=== PATIENT | female | born 2000 | race African-American/Black ===

== ENCOUNTER 2021-01-28 11:21 | Emergency (ER) | payer OTHER ==
[~2021-01-28] VITALS: Ht 152.4 cm; Wt 60.4 kg
[2021-01-28 12:31] LABS: CALCIUM 8.9 mg/dL (8.5-10.1); CREATININE 0.6 mg/dL (0.6-1.0); GFR 126.2; POTASSIUM 3.4 mmol/L (3.5-5.1)
[2021-01-28 12:37] LABS: ALBUMIN 3.4 g/dL (3.4-5.0); ALBUMIN/GLOBULIN RATIO 0.8 (1.0-1.7); TOTAL BILIRUBIN 0.2 mg/dL (0.2-1.0); TOTAL PROTEIN 7.7 g/dL (6.4-8.2)
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
[2021-01-28 13:40] LABS: BILIRUBIN,URINE NEGATIVE (NEG); CLARITY,URINE CLEAR; COLOR,URINE YELLOW; NITRITE,URINE NEGATIVE (NEG); PH,URINE 7.5 (<5.0-8.0); PROTEIN,URINE NEGATIVE (NEG-TRACE); UROBILINOGEN,URINE 0.2 mg/dL (0.2 mg/dL)
[2021-01-28 13:50] LABS: BACTERIA,URINE 0 /HPF (0-FEW)
[2021-01-28 14:43] VITALS: BP 112/70
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
== END 2021-01-28 15:34 | disposition home or self-care (01) ==
LOC: ER 11:21
DX: O9A.211 Injury, poisoning and certain other consequences of external causes complicating pregnancy, first trimester (principal); S00.12XA Contusion of left eyelid and periocular area, initial encounter; S70.212A Abrasion, left hip, initial encounter; R10.84 Generalized abdominal pain; M54.2 Cervicalgia; Z3A.08 8 weeks gestation of pregnancy; V43.62XA Car passenger injured in collision with other type car in traffic accident, initial encounter; Y93.89 Activity, other specified; Y92.89 Other specified places as the place of occurrence of the external cause; Y99.8 Other external cause status
CPT/HCPCS: 36415; 70450; 70486; 72125; 76801; 80053; 81001; 83690; 86850; 86900; 86901; 99285